=== PATIENT | female | born 1945 | race Caucasian/White ===

== ENCOUNTER 2021-03-08 09:42 | Inpatient (IN) | payer MEDICARE, OTHER ==
[~2021-03-08] VITALS: Ht 160 cm; Wt 41.7 kg
[2021-03-08] MEDS ORDERED: PRED5 PO (11:13)
[2021-03-08] MEDS ORDERED: PERCOCET 10-321 EAC6 PO (11:19)
[2021-03-08] MEDS ORDERED: POTA10T PO (11:20)
[2021-03-08] MEDS ORDERED: OXYB5 PO (11:20)
[2021-03-08] MEDS ORDERED: CENTRUM SILVER1 EAC2 PO (11:20)
[2021-03-08] MEDS ORDERED: LEVSOD100 PO (11:21)
[2021-03-08] MEDS ORDERED: MONT10T PO (11:21)
[2021-03-08] MEDS ORDERED: LISI20 PO (11:21)
[2021-03-08] MEDS ORDERED: Brovana15 MCG/2 M INH (11:22)
[2021-03-08] MEDS ORDERED: IPRAT-ALBUT 0.5-3 ML INH (11:22)
[2021-03-08] MEDS ORDERED: BUDE.25 INH (11:22)
[2021-03-08] MEDS ORDERED: ALBU90OI INH (11:23)
[2021-03-08] MEDS ORDERED: ATROVENT HFA12.9 GM INH (11:23)
[2021-03-08] MEDS ORDERED: SOMA350 M4 PO (11:23)
[2021-03-08] MEDS ORDERED: Aspir 8181 MG PO (11:23)
--- NOTE | 2021-03-08 15:44 | NUR ---
PT IS INTERESTED IN MOVING TO ASSISTED LIVING STATES SHE FEELS SHE NEEDS SOME ASSISTANCE. PATTERN HAND REFERRAL MADE. SPOKE WITH CARE MANAGEMENT WHO PROVIDED ALF CONNECTION BOOKLET TO PROVIDE PATIENT WITH ASSISTED LIVING CONTACT INFORMATION
--- NOTE | 2021-03-08 17:50 | NUR ---
PT TELLS ME HER GRANDDAUGHTER LIVES WITH HER BUT TYPICALLY GETS HOME FROM [employer] AT 03 SO THAT SHE REALLY ISNT MUCH HELP. RECEIVED PHONE CALL FROM PATIENTS GRANDSON SUSAN HILARIO. SUSAN LIVES IN [place] BUT STATES HE HAS RECENTLY BEEN CONCERNED ABOUT HIS GRANDMOTHER NEEDING MORE ASSISTANCE, SUSAN STATES HE WILL SPEAK VIA PHONE WITH HIS GRANDMOTHER AND WOULD BE ABLE TO ASSIST WITH FINDING ASSISTED LIVING. CHEST TUBE IN PLACE AT -20 CM, BUBBLING WITHOUT AIR LEAK OR CREPITUS. SCANT SANGUINOUS DRAINAGE FROM CHEST TUBE. PT HAS EATEN 3 FULL MEALS SINCE ADMIT. PT STATES SHE HAD FOOD AVAILABLE AT HOME BUT HADNT EATEN MUCH DUE TO POOR APPETITE
[2021-03-09 04:56] LABS: BASOPHILS ABSOLUTE AUTO 0.01 K/mm3 (0.00-0.23); BASOPHILS PERCENT AUTO 0 % (0-2); EOSINOPHILS PERCENT AUTO 0 % (0-6); Hematocrit 28.7 % (33.0-51.0); Hemoglobin 9.2 g/dL (11.5-16.0); IMMATURE GRAN ABSOLUTE AUTO 0.05 K/mm3 (0.00-0.10); IMMATURE GRAN PERCENT AUTO 1 % (0-1); LYMPHOCYTES ABSOLUTE AUTO 1.51 K/mm3 (0.84-5.20); LYMPHOCYTES PERCENT AUTO 14 % (21-46); MONOCYTES ABSOLUTE AUTO 0.85 K/mm3 (0.16-1.47); MONOCYTES PERCENT AUTO 8 % (4-13); Mean Corpuscular HGB 28.1 pg (26.0-34.0); Mean Corpuscular HGB Conc 32.1 g/dL (31.5-36.5); Mean Corpuscular Volume 88 fL (80-100); Mean Platelet Volume 9.3 fL (9.1-12.4); NEUTROPHILS PERCENT AUTO 78 % (41-73); Platelet Count 397 K/mm3 (150-400); RDW Coefficient Variation 15.6 % (11.7-14.2); RDW Standard Deviation 50.3 fL (35.1-46.3); Red Blood Cell Count 3.27 M/mm3 (3.80-5.20); White Blood Cell Count 10.92 K/mm3 (4.00-11.30)
[2021-03-09 05:24] LABS: Bilirubin, Total 0.2 mg/dL (0.1-1.0); Bun/Creatinine Ratio 36.3 (12.0-20.0); Calcium, Blood 8.5 mg/dL (8.5-10.1); Creatinine, Blood 1.02 mg/dL (0.40-1.00); Globulin, Blood 3.1 g/dL (2.2-4.0); Potassium, Blood 5.1 mmol/L (3.5-5.5); Total Protein, Blood 6.1 g/dL (6.4-8.2)
--- NOTE | 2021-03-09 07:29 | NUR ---
SHIFT SUMMARY PT TRANSFERRED FROM [facility] FOR PNEUMOTHORAX WITH CHEST TUBE.VSS. 3L N/C SATURATING OVER 90%. PT REPORTS PAIN EXTREME PAIN INTERMITTENTLY ON THE R SIDE CHEST. CALLED TELE SHE WAS ON SINUS 60'S. PAIN MANAGED WITH NORCO AND FENTANYL. CHEST TUBE EQUIPMENT WORKING PROPERLY, NO ISSUES. SHE HAS ALSO BEEN ANXIOUS, MEDICATED WITH XANAX X2. DAUGHTER CALLED AT 0200'YAN, GAVE HER AN UPDATE. SHE WILL COME IN LATER TODAY. CALL LIGHT WITHIN REACH. WILL PROVIDE REPORT TO JARED FRANCOIS.
--- NOTE | 2021-03-09 09:28 | NUR ---
PT STATED HER GLASSES WERE MISSING OFF HER TABLE AFTER BREAKFAST. BOTH JACOBY CONTRERAS AND Liza CHECKED THE BREAKFAST TABLE, BREAKFAST TRAY, ALL BEDDING SEPARATELY, IN THE BED/SIDE RAILS AND FLOOR, PT CHECKED HER PURSE AND PERSONAL BAG. WE WERE UNABLE TO LOCATE GLASSES. LEFT DETAILED MESSAGE ON DAUGHTER'S PHONE TO VERIFY IF GLASSES WERE AT HOME/OR WITH PT.
--- NOTE | 2021-03-09 17:45 | NUR ---
SHIFT SUMMARY PT A&OX3, FORGETFUL/REORIENTS EASILY, OXYGEN 3L BASELINE, BIOX AT BEDSIDE >88%, DEEP BREATHING EDU & ENC T/O SHIFT/PT DEMONSTRATED, TELE SR @ 84 BPM. CHEST TUBE BUBBLING/FLUCTUATING WITH SS OUPUT. PAIN/ANXIETY MANAGED WITH 5 NORCO, 25 FENT, 1 TAB XANAX. STAND PIVOT TO BSC/BED- SBA FOR LINES/CORDS. VOIDING WELL. CORA PO, DENIES N&V. WILL REPORT TO ONCOMING NOC RN.
--- NOTE | 2021-03-09 18:31 | NUR ---
TELEPHONE CALL WITH DAUGHTER WHO REPORTS THAT PT DOES NOT HAVE GLASSES WITH HER. THEY ARE AT HOME AND DAUGHTER IS PLANNING ON BRINGING GLASSES IN FOR PT.
[2021-03-10 04:08] LABS: BASOPHILS PERCENT AUTO 0 % (0-2); EOSINOPHILS PERCENT AUTO 0 % (0-6); Hematocrit 29.2 % (33.0-51.0); Hemoglobin 9.4 g/dL (11.5-16.0); IMMATURE GRAN ABSOLUTE AUTO 0.03 K/mm3 (0.00-0.10); IMMATURE GRAN PERCENT AUTO 0 % (0-1); LYMPHOCYTES ABSOLUTE AUTO 0.57 K/mm3 (0.84-5.20); LYMPHOCYTES PERCENT AUTO 7 % (21-46); MONOCYTES ABSOLUTE AUTO 0.14 K/mm3 (0.16-1.47); MONOCYTES PERCENT AUTO 2 % (4-13); Mean Corpuscular HGB 28.6 pg (26.0-34.0); Mean Corpuscular HGB Conc 32.2 g/dL (31.5-36.5); Mean Corpuscular Volume 89 fL (80-100); Mean Platelet Volume 9.6 fL (9.1-12.4); NEUTROPHILS ABSOLUTE AUTO 7.66 K/mm3 (1.96-9.15); NEUTROPHILS PERCENT AUTO 91 % (41-73); Platelet Count 431 K/mm3 (150-400); RDW Coefficient Variation 15.6 % (11.7-14.2); Red Blood Cell Count 3.29 M/mm3 (3.80-5.20)
[2021-03-10 04:24] LABS: Anion Gap 3 mmol/L (6-16); Blood Urea Nitrogen 37 mg/dL (8-24); Bun/Creatinine Ratio 42.9 (12.0-20.0); CO2, Blood 29 mmol/L (21-32); Calcium, Blood 8.3 mg/dL (8.5-10.1); Chloride, Blood 100 mmol/L (98-108); Creatinine, Blood 0.86 mg/dL (0.40-1.00); Glomerular Filtration Rate >60 (60-); Glucose, Blood 132 mg/dL (70-99); Potassium, Blood 5.3 mmol/L (3.5-5.5); Sodium, Blood 132 mmol/L (136-145)
--- NOTE | 2021-03-10 04:47 | NUR ---
PATIENT IS A/O BUT FORGETFUL. VSS ON 3L. C/O CP AND SOB. CHEST TUBE TO SUCTION. NO CREPITUS PRESENT. UP TO BSC W/ SBA AND HELP W/ LINE/TUBE MANAGEMENT. PAIN MANAGED WELL W/ PRN PAIN MEDS. XANAX GIVEN FOR ANXIETY. SLEEPING B/W CARE. USING CALL LIGHT TO MAKE NEEDS KNOWN.
--- NOTE | 2021-03-10 15:09 | NUR ---
SHIFT SUMMARY PT A&OX3, FORGETFUL, ANXIOUS ABOUT DISCHARGE, LEGALLY BLIND(WITHOUT GLASSES, DAUGHTER DID NOT BRING THEM IN). CHEST TUBE TO WATERSEAL, PLAN FOR XRAY IN AM. PAIN TREATED WITH 10 MG OXY Q6P AND FENT 25 MCGS Q8P; ANXIETY TREATED WITH 0.25 XANAX Q6P. CORA PO, REQUIRES MEAL SET UP. STAND PIVOT TO BSC/BED, 1 PP SBA FOR LINES/CORDS. VOIDING WELL. WILL REPORT TO ONCOMING NOC RN.
--- NOTE | 2021-03-11 05:30 | NUR ---
PATIENT A/OX4, VERY FORGETFUL BUT EASILY REORIENTED. PT NEEDING FREQUENT REMINDERS SHE HAS A CHEST TUBE IN PLACE. CHEST TUBE TO WATER SEAL. NO CREPITUS OR AIRLEAK NOTED. 10CC OUTPUT. PT UP TO BSC W/ MIN ASSIST. PAIN MANAGED WELL W/ PRN PAIN MEDS. PT C/O INSOMNIA, MELATONIN GIVEN AND INEFFECTIVE. PT REQUESTING TO HAVE STRONGER SLEEPING AID TONIGHT. USING CALL LIGHT TO MAKE NEEDS KNOWN BUT OCCATIONALLY YELLS OUT INTO HALLWAY FOR HELP.
--- NOTE | 2021-03-11 19:24 | NUR ---
SHIFT SUMMARY CHEST TUBE REMAINS IN PLACE TO WATER SEAL AT THIS TIME. PT REPORTS DISCOMFORT WITH DEEP BREATHING, PAIN MANAGED WITH PO PAIN MEDICATION. PT IS A 1 ASSIST TO THE BEDSIDE COMMODE, SHE NEEDS ASSISTANCE WITH LINES AND TUBES. PT'S DAUGHTER REPORTED SHE IS BRINGING PT'S GLASSES AND PHONE PHOTOGRAPHY AND PRINTS CURATOR TONIGHT. PT VERBALIZED OK FOR THIS RN TO SPEAK WITH HER DAUGHTER THIS EVENING. VSS. REPORT GIVEN TO NOC RN.
--- NOTE | 2021-03-11 22:12 | NUR ---
PROVIDED WITH BEDTIME SNACK PER HER REQUEST.
--- NOTE | 2021-03-11 23:59 | NUR ---
MEDICATED PER EMAR FOR BREAKTHRU PAIN. C/O INDIGESTION AND ASKED FOR TUMS, GIVEN YOGURT TO SEE IF THAT WOULD HELP.
--- NOTE | 2021-03-12 06:12 | NUR ---
SHIFT SUMMARY LYING IN SEMI FOWLERS WITH EYES CLOSED. HAS NOT RESTED THIS SHIFT EVEN. SHE HAS VOICED CONCERNS THAT HER DAUGHTER DIDN'T COME TO SEE HER AND BRING HER GLASSESS/PHONE MONOTYPIST. PAIN MANAGEMENT HAS BEEN DIFFICULT WELL, RESPIRATIONS EVEN BUT LABORED ON HIGH FLOW O2. LUNG SOUNDS COARSE WITH RUB NOTED ON RLL. RIGHT LATERAL CHEST TUBE TO WATERSEAL IS PATENT, CONNECTED TO CONT LOW WALL SUCTION. GENTLE BUBBLING WITH FLUCTIONATION NOTED. ABDOMEN SOFT AND MIDLY DISTENDED. BOWEL SOUNDS NOTED IN ALL QUADS. REPORTS LAST BM ON 03/01/21 AND WAS NORMAL FOR HER. RIGHT FA SL 20G PIV IS PATENT, FLUSHING WITH EASE. GOOD DISTAL PULSES NOTED. DENIES FURTHER NEEDS AT THIS TIME. SAFETY MEASURES IN PLACE. WILL CONTINUE TO MONITOR AND ADDRESS NEEDS THEY ARISE. WILL GIVE HAND OFF TO ONCOMING SHIFT USING SBAR DURING BEDSIDE REPORT.
--- NOTE | 2021-03-12 07:34 | NUR ---
DR. MCPHERSON ROUNDED ON PT. CHEST TUBE TO STAY IN PLACE AT THIS TIME.
--- NOTE | 2021-03-12 07:56 | NUR ---
CALL TO PT'S GRANDSON PT REQUESTED THAT NURSING STAFF NOTIFY HER GRANDSON THAT SHE WILL NOT BE DISCHARGING TODAY. PT'S GRANDSON (SUSAN) REPORTED THAT THE PT DOES NOT HAVE FAMILY TO HELP PROVIDE CARE AT HOME AND IS HOPING FOR PT TO DISCHARGE TO A SNF. HE REPORTED THAT HE PLANS TO ASSIST PT TO BE PLACED IN AN ASSISTED LIVING FACILITY BUT NEEDS TIME TO DO THAT. HE WAS EDUCATED THAT SNF WOULD NEED TO BE A RECOMMENDATION FROM PHYSICAL THERAPY AND THAT THIS RN WILL REQUEST PT. PT'S MOVEMENT IS LIMITED R/T CHEST TUBE AT THIS TIME WILL DISCUSS APPROPRATENESS OF THERAPY WITH HOSPITALIST. WILL NOTIFY CARE MANAGMENT OF FAMILY AND PT CONCERNS.
--- NOTE | 2021-03-12 08:05 | NUR ---
PT CONTINUES TO BE ANXIOUS ABOUT HER GLASSES. PT IS LEGALLY BLIND AND DOES NOT HAVE HER GLASSES. FAMILY REPORTS HER GLASSES ARE AT HOME AND THEY DID NOT COME WITH HER TO THE HOSPITAL, PT IS ADAMANT THAT SHE HAD THEM AT THE HOSPITAL. SHE ALSO ASKS FOR HER PHONE MANAGEMENT TECHNICIAN WHICH HER DAUGHTER ALSO REPORTS IS AT HOME. PHONE MANAGEMENT TECHNICIAN WAS PROVIDED BY STAFF MEMBERS. PT'S DAUGHTER IS AWARE PT HAS LIMITED SIGHT WITHOUT GLASSES.
--- NOTE | 2021-03-12 10:50 | NUR ---
INCREASED SHORTNESS OF BREATH AT APPROXIMATELY 1015 PT STARTED HAVING INCREASED SHORTNESS OF BREATH AND PAIN TO THE RIGHT CHEST. RR INCREASED BUT EVEN AND UNLABORED. PT ALSO REPORTED PAIN WAS RESULTING IN SHALLOW BREATHING. O2 SATURATION ON 3L NC DECREASED TO 88%. PT ALSO REPORTS ANXIETY R/T HER FAMILY AND THAT THEY HAVE NOT VISITED. SHE IS ALSO ANXIOUS THAT SHE DOES NOT HAVE HER GLASSES AND THAT HER DAUGHTER FAILED TO BRING THEM. PT WAS GIVEN MS CONTIN FOR ADDITIONAL PAIN MANAGEMENT. SHE IS NOW RESTING COMFORTABLY SHE REPORTS PAIN IS MANAGED AND STATES SHORTNESS OF BREATH HAS RESOLVED. O2 SATURATIONS HAVE RETURNED TO >90% WITHOUT INCREASED O2. SMALL AIR LEAK STILL NOTED, DOES NOT APPEAR TO BE WORSENING. VSS. WILL CONTINUE TO MONITOR.
--- NOTE | 2021-03-12 12:26 | NUR ---
INCREASED SHORTNESS OF BREATH PT WAS SITTING UP EATING LUNCH, SHE STARTED COUGHING AFTER SWALLOWING A BITE OF CHICKEN. PT REPORTED FEELING THAT FOOD WAS STUCK IN HER THROAT AND STATED "I CAN'T BREATHE." THE ALSO REPORTED "EVERYTHING IS GOING DARK," CLARIFIED THAT SHE MEANT HER VISION WAS GOING DARK AND SHE CONFIRMED. PT ALSO APPEARED PALE AT THIS TIME. PT WAS OBSERVED TO BE ABLE TO COUGH, TALK AND BREATH BUT APPEARED UNCOMFORTABLE. HER O2 SATURATION INITIALLY REMAINED AT 90% ON 3LO2 BUT STARTED TO DROP. PT WAS PLACED ON 6L OXIMIZER AND INSTRUCTED TO DEEP BREATHE. RT CALLED AND PROVIDED A BREATHING TREATMENT. DR. SIMON NOTIFIED AND [facility] ORDERED. PT'S O2 SATURATION IMPROVED AFTER HER BREATHING TREATMENT TO 93% AND SHE WAS PLACED BACK ON 3L NC BY RESPIRATORY THERAPY. PT EDUCATED TO NOT EAT OR DRINK UNTIL SHE IS SEEN BY SPEECH THERAPY.
--- NOTE | 2021-03-12 17:30 | NUR ---
PAIN DR. MCPHERSON WAS NOTIFIED THAT PT'S FAMILY ASKED IF THE PT HAD AN EKG DURING HER STAY. HE WAS ALSO NOTIFIED THAT PT HAS HAD CONTINUED R CHEST AND BACK PAIN, WHICH APPEARS TO BE RELATED TO R PNEUMOTHORAX AND CHEST TUBE PLACEMENT. PER TRANSFER NOTES FROM [facility], PT HAD AN EKG AND TROPONIN WHICH WAS NEGATIVE PRIOR TO TRANSFER TO [facility]. PT WAS ALSO INITIALLY PLACED ON TELE WHEN ADMITTED, TELE HAS SINCE BEEN DC'D. PT'S VSS. NO INCREASED SHORTNESS OF BREATH OR RECENT CHANGE IN CHEST/BACK PAIN PATTERN. PT IS ON 3L O2 VIA NC PER PER HER BASELINE. PLAN TO CONTINUE TO MONITOR FOR CHANGES.
--- NOTE | 2021-03-12 19:45 | NUR ---
SHIFT SUMMARY CHEST TUBE REMAINS IN PLACE, PLAN FOR POSSIBLE REMOVAL TOMORROW. PAIN MANAGED WITH PO OXY AND MS CONTIN. PT HAS COMPLAINED OF R CHEST AND BACK PAIN T/O THE SHIFT, UNCHANGED FROM YESTERDAY. PT HAS HAD SOME SHORTNESS OF BREATH WHICH IMPROVES WITH BREATHING TREATMENTS AND ALSO TREATMENT FOR ANXIETY. PT IS A 1 ASSIST TO THE BSC AND REQUIRES ASSISTANCE WITH LINES AND TUBES. REPORT GIVEN TO EVAN AGUIRRE.
--- NOTE | 2021-03-13 03:39 | NUR ---
SHIFT SUMMARY PT REMAIN TO HAVE HER CHEST TUBE IN PLACE. SHE C/O INTERMITTENT PAIN. PAIN MANAGED WITH MS CONTIN TID (MEDICATED ONCE) AND ROXICODONE. PT SEEM TO TOLERATE PAIN BETTER T/O SHIFT. SHE HAS BEEN ANXIOUS, MEDICATED WITH XANAX. SHE ALSO TAKEN MELATONIN AT BEDTIME TO HELP HER SLEEP. PT STS IT DOESNT SEEM TO HELP, BUT SHE WAS ABLE TO SLEEP EVERY NOW AND THEN. SHE HAS ALSO BEEN GETTING HER BREATHING TX, USED FLUTTER VALVE AND ENC USE OF HER I/S. I ALSO GAVE HER BOWEL CARE LAST NIGHT INCLUDING MIRALAX, COLACE, SENAKOT, AND SUPPOSITORY. SHE HAD A SMALL SOFT STOOL AFTER. VOIDING WELL, REPORTS SOME BURNING WHEN URINATING. SHE USES BSC MULTIPLE TIMES T/O SHIFT. TOLERATING MOVEMENT WELL. CALL LIGHT WITHIN REACH. WILL PROVIDE REPORT TO ONCOMING NURSE.
[2021-03-13 04:12] LABS: BASOPHILS ABSOLUTE AUTO 0.01 K/mm3 (0.00-0.23); BASOPHILS PERCENT AUTO 0 % (0-2); EOSINOPHILS PERCENT AUTO 0 % (0-6); Hematocrit 28.6 % (33.0-51.0); Hemoglobin 9.2 g/dL (11.5-16.0); IMMATURE GRAN ABSOLUTE AUTO 0.05 K/mm3 (0.00-0.10); IMMATURE GRAN PERCENT AUTO 1 % (0-1); LYMPHOCYTES ABSOLUTE AUTO 1.98 K/mm3 (0.84-5.20); LYMPHOCYTES PERCENT AUTO 24 % (21-46); MONOCYTES ABSOLUTE AUTO 0.71 K/mm3 (0.16-1.47); MONOCYTES PERCENT AUTO 9 % (4-13); Mean Corpuscular HGB 27.6 pg (26.0-34.0); Mean Corpuscular HGB Conc 32.2 g/dL (31.5-36.5); Mean Corpuscular Volume 86 fL (80-100); Mean Platelet Volume 9.5 fL (9.1-12.4); NEUTROPHILS ABSOLUTE AUTO 5.36 K/mm3 (1.96-9.15); NEUTROPHILS PERCENT AUTO 66 % (41-73); Platelet Count 457 K/mm3 (150-400); RDW Coefficient Variation 15.5 % (11.7-14.2); RDW Standard Deviation 48.6 fL (35.1-46.3); Red Blood Cell Count 3.33 M/mm3 (3.80-5.20); White Blood Cell Count 8.11 K/mm3 (4.00-11.30)
[2021-03-13 04:30] LABS: Anion Gap 3 mmol/L (6-16); Blood Urea Nitrogen 41 mg/dL (8-24); Bun/Creatinine Ratio 47.7 (12.0-20.0); CO2, Blood 29 mmol/L (21-32); Calcium, Blood 8.2 mg/dL (8.5-10.1); Chloride, Blood 99 mmol/L (98-108); Creatinine, Blood 0.86 mg/dL (0.40-1.00); Glomerular Filtration Rate >60 (60-); Glucose, Blood 104 mg/dL (70-99); Potassium, Blood 5.2 mmol/L (3.5-5.5); Sodium, Blood 131 mmol/L (136-145)
--- NOTE | 2021-03-13 08:30 | NUR ---
pt eating breakfast req assist to the bathroom gets sob with activity pt stated pain r/t the ct after moving is 81/0 req pain meds still wanting to do all the med for bm had small last night
--- NOTE | 2021-03-13 13:19 | NUR ---
ASSISTED PT OFF BSC INTO BED STATED SHE IS NOT FEELING GOOD WANTS SOMETHING TO HELP HER SLEEP XANAX GIVEN WILL GIVE MS CONTIN AT [address] ROSENBAUM EARLIER FOR A TUMS PER PT REQ
--- NOTE | 2021-03-13 15:09 | NUR ---
Met with pt for palliative visit. She is pleasantly confused. She had just finished eating lunch when I arrived; appears she ate only 10% or so of her meal. She appears to have extreme air hunger, even on 02. She tells me she has been living at home, with caregivers assisting. However, the plan is for her to sell her home and move into a care facility. She gave me permission to call her grandson José Manuel, who is helping her "sort things out". Placed call to José Manuel, and he confirms he will be taking over pt's care. He lives on the [facility], and plans to move pt closer to him, either in assisted living or Adult Foster Home. We also discussed pt's POLST status, and we also talked briefly about hospice, as it is a great benefit, and pt would likely qualify. He is planning to come see pt tomorrow, will follow up with him then.
--- NOTE | 2021-03-13 17:52 | NUR ---
DR MCPHERSON BY TO SEE PT CHEST TUBE REMOVED OCCLUSIVE DRESSING PLACED PT FAMILY CALLED UPDATE GIVEN
--- NOTE | 2021-03-14 04:04 | NUR ---
SHIFT SUMMARY NO ACUTE CHANGE OVERNIGHT. VSS. PT IS NOT PAINFUL COMPARED LAST NIGHT. BUT HAS BEEN ANXIOUS. PAIN MANAGED WITH MS CONTIN AND OXY. SHE SLEPT ON AND OFF. MEDICATED PT W/ XANAX FOR ANXIETY. SHE HAS BEEN UP AND WALKED IN THE BSC W/ MIN 1 PERSON ASSIST. TOLERATING PO INTAKE. DENIES NAUSEA AND VOMITING. SHE IS ALSO WOULD WAKE UP AND STATING THAT SHE IS DREAMING AND APPEARED TO BE CONFUSED BUT REORIENTED EASILY. SHE USES HER CALL LIGHT APPROPRIATELY. CALL LIGHT WITHIN IN REACH. WILL PROVIDE REPORT TO ONCOMING NURSE.
--- NOTE | 2021-03-14 11:39 | NUR ---
Family coming from out of area [place] assist with polst and intermediate card tender plan.
--- NOTE | 2021-03-14 16:36 | NUR ---
pt discharging home. Review with grandson advance directive, polst poa and plan of care. They asked about hospice care. pt lives in [facility] has little money is selling her condo and applying for medicaid. Willi is considering taker her home to [place] to be near him we [place] hosp[place]. He requested hoospice consult.
--- NOTE | 2021-03-14 17:11 | NUR ---
DISCHARGE PT DISCHARGED HOME FROM UNIT AT APROX 1700. PT AND GRANDSON GIVEN WRITTEN AND VERBAL DISCHARGE INSTRUCTIONS AND BOTH VERBALIZED UNDERSTANDING. OXYGEN FOR TRIP HOME DROPPED OFF AND SON INSTRUCTED ON USE. WHEELCHAIR TO CAR.
--- NOTE | 2021-03-15 11:18 | NUR ---
call made to [facility]. for referral pt [place] their home heatlh team and will call [facility] and set up hospice.
== END 2021-03-14 16:57 | disposition home health service (06) | DRG 190 ==
LOC: ER 09:42 → SURS 11:20
PROVIDERS: Internal Medicine; ADMIT Internal Medicine
DX: J43.9 Emphysema, unspecified (principal); E43 Unspecified severe protein-calorie malnutrition; J96.21 Acute and chronic respiratory failure with hypoxia; J93.12 Secondary spontaneous pneumothorax; E87.1 Hypo-osmolality and hyponatremia; N17.9 Acute kidney failure, unspecified; E27.3 Drug-induced adrenocortical insufficiency; I13.0 Hypertensive heart and chronic kidney disease with heart failure and stage 1 through stage 4 chronic kidney disease, or unspecified chronic kidney disease; Z68.1 Body mass index [BMI] 19.9 or less, adult; N18.30 Chronic kidney disease, stage 3 unspecified; E87.6 Hypokalemia; T38.0X5A Adverse effect of glucocorticoids and synthetic analogues, initial encounter; F41.9 Anxiety disorder, unspecified; D47.3 Essential (hemorrhagic) thrombocythemia; I50.9 Heart failure, unspecified; E03.9 Hypothyroidism, unspecified; D63.1 Anemia in chronic kidney disease; F17.210 Nicotine dependence, cigarettes, uncomplicated; G89.29 Other chronic pain; Z99.81 Dependence on supplemental oxygen; I25.2 Old myocardial infarction; Z95.5 Presence of coronary angioplasty implant and graft; Z90.710 Acquired absence of both cervix and uterus; Z90.89 Acquired absence of other organs; Z98.890 Other specified postprocedural states; Z88.0 Allergy status to penicillin; Z88.8 Allergy status to other drugs, medicaments and biological substances; Z91.048 Other nonmedicinal substance allergy status; Z79.82 Long term (current) use of aspirin; Z79.899 Other long term (current) drug therapy
CPT/HCPCS: 36415; 71045; 80048; 80053; 85025; 92610; 94640; 94667; 94762; 96374; 96375; 97116; 97162; 97165; 97530; 97535; 99285-25; A9270; J1650; J1720; J2405; J3010; J7512